=== PATIENT | male | born 1990 | race Caucasian/White ===

== ENCOUNTER 2017-07-06 15:10 | Emergency (ER) | payer OTHER ==
[~2017-07-06] VITALS: Ht 180.3 cm; Wt 72.6 kg
[2017-07-06 15:24] VITALS: BP 124/67; Ht 180.3 cm; Wt 72.6 kg
== END 2017-07-06 16:53 | disposition home or self-care (01) ==
LOC: ED 15:10
DX: N48.89 Other specified disorders of penis (principal)
CPT/HCPCS: 87491; 87591

== ENCOUNTER 2017-10-10 11:13 | Emergency (ER) | payer OTHER ==
[~2017-10-10] VITALS: Ht 180.3 cm; Wt 67.6 kg
[~2017-10-10 11:13] MED LIST: NORCO1 TA2 PO
[2017-10-10 11:24] VITALS: BP 119/68; Ht 180.3 cm; Wt 67.6 kg
== END 2017-10-10 12:01 | disposition home or self-care (01) ==
LOC: ED 11:13
DX: Z48.01 Encounter for change or removal of surgical wound dressing (principal); Z90.89 Acquired absence of other organs

== ENCOUNTER 2019-10-05 09:42 | Emergency (ER) | payer MEDICAID ==
[~2019-10-05] VITALS: Ht 180.3 cm; Wt 68.9 kg
[2019-10-05 09:54] VITALS: Ht 180.3 cm; Wt 68.9 kg
[2019-10-05 10:43] VITALS: BP 112/68
[2019-10-05 10:46] LABS: UA SPECIFIC GRAVITY 1.025 (1.005-1.035); microscopic required? YES; urine erythrocyte 1+ (NEGATIVE)
== END 2019-10-05 10:43 | disposition home or self-care (01) ==
LOC: ED 09:42
PROVIDERS: Emergency Medicine
DX: N34.2 Other urethritis (principal)
CPT/HCPCS: 87491; 87591; J0696